=== PATIENT | male | born 1985 | race Caucasian/White ===

== ENCOUNTER 2020-07-12 18:19 | Emergency (ER) | payer BC, SELFPAY ==
[2020-07-12 18:43] VITALS: BP 140/88; PULSE 83; RESP 16; TEMP 36.7; O2SAT 97; BMI 27.8
--- NOTE | 2020-07-12 19:36 | W.ED.EXTPRO ---
Documented by User: NATALIA Patterson 07/13/20 01:36 HPI - Extremity Problem General: Chief complaint: Extremity Injury, Lower Stated complaint: lac on fingers Time Seen by Provider: 07/12/20 19:36 History of Present Illness: HPI Narrative: Patient is a 34-year-old male who comes to the ED with a laceration on her right hand. Patient says he was peeling potatoes and cut his first and third digits of right hand. First first digit has laceration on it and he says the third digit has a chunk of skin that was removed. He is having trouble controlling bleeding on third digit. patient's last tetanus was over 10 years ago. Associated symptoms: Deny chest pain, fever(s) or rash Review of Systems Const: Denies: fever(s), chills or fatigue Eyes: Denies: change in vision or eye discomfort ENMT: Denies: throat pain, odynophagia, nasal discharge or nasal congestion Card: Denies: chest pain, palpitations, edema, swelling of feet/ankles, dyspnea on exertion or orthopnea Resp: Denies: dyspnea, productive cough or non-productive cough GI: Denies: abdominal pain, nausea, vomiting, diarrhea, constipation or hematochezia : Denies: flank pain, difficulty urinating, dysuria or hematuria Musc: Denies: neck pain, back pain or extremity swelling Skin/Breast: Reports: new lesions (Right hand-first digit laceration. Third digit skin avulsion.); Denies: rash Neuro: Denies: headache(s), numbness in extremities or weakness in extremities Physical Exam Const: COMMON NORMALS: no acute distress, patient oriented x3 and alert HENMT: COMMON NORMALS: normocephalic HEAD & SCALP: normocephalic MOUTH: Normal oral and palatal mucosa present THROAT: posterior oropharynx normal and uvula midline Neck/C-Spine: COMMON NORMALS: supple GENERAL: Yes normal visual inspection Resp: COMMON NORMALS: normal respiratory effort, No retractions, No use of accessory muscles and clear to auscultation bilaterally AUSCULTATION: clear to auscultation bilaterally Cardio: COMMON NORMALS: regular rate, regular rhythm, S1 normal heart sound present, S2 normal heart sound present, No gallops present (Cardio), No clicks present (Cardio), No murmurs present (Cardio) and Peripheral pulses 2+ throughout RATE: regular rate RHYTHM: regular rhythm HEART SOUNDS: S1 normal heart sound present and S2 normal heart sound present PERIPHERAL PULSES: Peripheral pulses 2+ throughout GI: COMMON NORMALS: Normal to inspection, nondistended, normoactive bowel sounds present, Soft to palpation, non-tender and no masses PALPATION: Yes Soft to palpation : COMMON NORMALS: Yes no CVA tenderness BLADDER/KIDNEY EXAM: Yes no CVA tenderness Back/Pelvis: COMMON NORMALS: no CVA tenderness Extremity: COMMON NORMALS: full ROM NARRATIVE EXTREMITY EXAM: Right hand--first digit has skin flap that is not actively bleeding. Patient's third digit has a skin avulsion on dorsal side. There is active pulsatile bleeding present. GENERAL: Yes normal exam except as noted Neuro: COMMON NORMALS: patient oriented x3 and moves all extremities SENSORIUM/ORIENTATION: Yes alert Skin: NARRATIVE SKIN EXAM: Right hand--first digit has skin flap that is not actively bleeding. Patient's third digit has a skin avulsion on dorsal side. There is active pulsatile bleeding present. GENERAL SKIN EXAM: dry skin Procedures Laceration Laceration 1: Site: hand Side (If applicable): right Size (cm): 1 Description: flap and clean Depth: simple, single layer Local Anesthetic: lidocaine 2% Amount of anesthesia used (mL): 10 Pre-repair: irrigated extensively (Irrigated extensively with normal saline by nurse. Then cleaned with alcohol swab.) Skin layer closed with: nylon Size (cm): 4-0 Number of sutures: 2 Technique: simple, interrupted Course Reevaluation(s): Reevaluation #1: With a skin avulsion I applied lidocaine with epi soaked cotton balls and applied bandage to try to get the bleeding to slow and stop. After leaving bandage on for 40 minutes I then removed it and bleeding continued. Reevaluation #2: Brought Dr. Chance with me to evaluate patient's skin avulsion and bleeding. I then irrigated skin avulsion with normal saline and then injected some lidocaine with epi around skin avulsion to help with bleeding. Dr. Chance then placed finger tourniquet and then placed 1 Vicryl absorbable in the skin avulsion and it helped stop bleeding. We then placed petroleum gauze and wrapped finger. Vital Signs: Vital signs: Vital Signs Temperature 98.0 F 07/12/20 18:43 Pulse Rate 83 07/12/20 18:43 Respiratory Rate 16 07/12/20 18:43 Blood Pressure 140/88 07/12/20 18:43 Pulse Oximetry 97 07/12/20 18:43 MDM - Extremity (Nontraumatic) MDM Narrative: Medical decision making narrative: Patient is a 34-year-old male who comes to the ED with a laceration on fingers of right hand. Physical exam shows a skin flap laceration on first digit of right hand and third digit had a skin avulsion with active pulsatile bleeding. X-ray of right hand was performed and showed no acute fractures or findings. 2 sutures were placed on first digit of right hand. Skin avulsion was finally controlled with I then irrigated skin avulsion with normal saline and then injected some lidocaine with epi around skin avulsion to help with bleeding. Dr. Chance then placed finger tourniquet and then placed 1 Vicryl absorbable in the skin avulsion and it helped stop bleeding. We then placed petroleum gauze and wrapped finger. Patient was given dose of cephalexin and an updated tetanus shot while here in the ED. Patient was told on how to care for laceration and avulsion. He was sent home with a prescription for cephalexin as prophylactic treatment. Have sutures removed in 7 to 10 days. Return to ED precautions given. Patient understood and agreed with plan. Imaging Data^: Xray Ortho: Attestation: I personally reviewed and interpreted this imaging study as follows: My impression: Right hand x-ray-no acute fractures or findings. Discharge Plan Discharge Patient Disposition: Home Clinical Impression: Laceration, Avulsion, skin Condition: Stable Prescriptions: New cephalexin 500 mg capsule 500 mg PO TID 5 Days Qty: 15 RF: 0 Discharge Orders: Discharge Order (Routine); Ordered 07/12/20 Ordered By: Carroll Daniel Discharge Diet: Regular Discharge Activity: Increase activity as tolerated Patient Instructions: Laceration (ED), Skin Avulsion (ED) Activity Restrictions/Additional Instructions: Take full course of antibiotics as prescribed. Bandage on middle finger leave in place for the next 48 hours as well then clean, repack and bandage daily. Keep laceration site clean and dry for the next 48 hours. Then after that you can clean and re-bandage daily. Watch for signs of infection such as redness, warmth, increased tenderness and puslike drainage. If you see the signs of infection return to the ED, urgent care or PCP for reevaluation. call your PCP to schedule a follow-up appointment for reevaluation and suture removal in about 10 days. Continue taking all home meds. Follow discharge plans as discussed. You can return to the ED if symptoms worsen. Discharge Date/Time: 07/12/20 22:08 Coding Level of Care Code ED Fine Craft Artist for Chg Fwd Exam Comprehensive Documented by User: Celina Chance MD 07/13/20 21:49 HPI - Extremity Problem General: Chief complaint: Extremity Injury, Lower Stated complaint: lac on fingers Time Seen by Provider: 07/12/20 19:36 Course Vital Signs: Vital signs: Vital Signs Temperature 98.0 F 07/12/20 18:43 Pulse Rate 83 07/12/20 18:43 Respiratory Rate 16 07/12/20 18:43 Blood Pressure 140/88 07/12/20 18:43 Pulse Oximetry 97 07/12/20 18:43 Discharge Plan Discharge Patient Disposition: Home Clinical Impression: Laceration, Avulsion, skin Condition: Stable Prescriptions: New cephalexin 500 mg capsule 500 mg PO TID 5 Days Qty: 15 RF: 0 Discharge Orders: Discharge Order (Routine); Ordered 07/12/20 Ordered By: Carroll Daniel Discharge Diet: Regular Discharge Activity: Increase activity as tolerated Patient Instructions: Laceration (ED), Skin Avulsion (ED) Activity Restrictions/Additional Instructions: Take full course of antibiotics as prescribed. Bandage on middle finger leave in place for the next 48 hours as well then clean, repack and bandage daily. Keep laceration site clean and dry for the next 48 hours. Then after that you can clean and re-bandage daily. Watch for signs of infection such as redness, warmth, increased tenderness and puslike drainage. If you see the signs of infection return to the ED, urgent care or PCP for reevaluation. call your PCP to schedule a follow-up appointment for reevaluation and suture removal in about 10 days. Continue taking all home meds. Follow discharge plans as discussed. You can return to the ED if symptoms worsen. Discharge Date/Time: 07/12/20 22:08 Coding Level of Care Code ED Fine Craft Artist for Abel Chung Exam Comprehensive
--- NOTE | 2020-07-12 19:51 | XRR_ITS ---
PROCEDURE INFORMATION: Exam: XR Right Hand Exam date and time: 07/12/2020 8:06 PM Age: 34 years old Clinical indication: Injury or trauma; Other: Laceration; Right; Index finger and middle finger and ring finger; Injury date: 07/12/20; Additional info: Cut injury to digit 1 and 2. TECHNIQUE: Imaging protocol: XR Right hand. Views: 3 or more views. COMPARISON: No relevant prior studies available. FINDINGS: Bones/joints: Osseous structures of the hand are without an acute process. Distal radioulnar joint and radiocarpal joints grossly normal. Carpus without fracture. Metacarpals and phalangeal without fracture or dislocation. No erosive changes or periarticular calcifications. Bandage about the mid and distal phalanges of the 3rd ray. Soft tissues: See Bones/joints finding. XR/XR hand RT min 3V* [id number] IMPRESSION: Normal hand. No fracture. No foreign body.
[2020-07-12] MEDS: tetanus-diphtheria tox (adult) 0.5 mL SDV IM (20:06)
[2020-07-12] MEDS: cephALEXin 500 mg Capsule PO (21:06)
[2020-07-12] MEDS: lidocaine 2% INJ 20 mL INJECTION (21:06)
== END 2020-07-12 22:08 | disposition home or self-care (01) ==
PROVIDERS: Emergency Provider Physician Assistant
DX: S61.011A Laceration without foreign body of right thumb without damage to nail, initial encounter (principal); S61.212A Laceration without foreign body of right middle finger without damage to nail, initial encounter; W26.0XXA Contact with knife, initial encounter; Z23 Encounter for immunization
CPT/HCPCS: 12001; 12345; 73130; 90471; 90714; 99281; 99283

== ENCOUNTER 2022-05-13 14:07 | Emergency (ER) | payer BC, SELFPAY ==
[2022-05-13] VITALS (45 sets, daily range): BP systolic 132–160; BP diastolic 86–101; PULSE 69–97; RESP 10–25; TEMP 36.6; O2SAT 95–100; BMI 29.1
--- NOTE | 2022-05-13 14:29 | XRR_ITS ---
PROCEDURE INFORMATION: Exam: XR Chest Exam date and time: 05/13/2022 2:44 PM Age: 36 years old Clinical indication: Chest wall pain; Additional info: Chest pain TECHNIQUE: Imaging protocol: Radiologic exam of the chest. Views: 1 view. COMPARISON: No relevant prior studies available. FINDINGS: Lungs: Unremarkable. No consolidation. Pleural spaces: Unremarkable. No pleural effusion. No pneumothorax. Heart/Mediastinum: Unremarkable. No cardiomegaly. Bones/joints: Unremarkable. XR/XR chest 1V portable [id number] IMPRESSION: No acute findings.
--- NOTE | 2022-05-13 14:33 | ECG_ITS ---
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 Measurements Intervals [place] Rate: 86 P: 59 WV: 183 QRS: -25 QRSD: 111 T: 41 QT: 358 QTc: 430 Interpretive Statements SINUS RHYTHM WITH OCCASIONAL ECTOPIC PREMATURE COMPLEXES BORDERLINE LEFT AXIS DEVIATION [QRS AXIS < -20] INCOMPLETE RIGHT BUNDLE BRANCH BLOCK [90+ ms QRS DURATION, TERMINAL R IN V1/V2, 40+ ms S IN I/aVL/V4/V5/V6] No previous ECG available for comparison Electronically Signed On 05-15-2022 8:12:18 CDT by Shannon Almendarez M.D. [email or web address]
[2022-05-13 14:57] LABS: Basophils # 0.1 10^3/uL (0.0-0.1); Basophils % 0.8 %; Eosinophils # 0.2 10^3/uL (0.0-0.8); Eosinophils % 2.3 %; Hematocrit 47.1 % (42.0-52.0); Hemoglobin 15.6 g/dL (11.7-16.6); Lymphocytes # 1.3 10^3/uL (0.8-4.8); Lymphocytes % 12.2 %; Mean Corpuscular HGB Conc 33.1 g/dL (30.0-36.0); Mean Corpuscular Hemoglobin 28.6 pg (28.0-34.0); Mean Corpuscular Volume 86.4 fl (80-94); Mean Platelet Volume 11.6 fL (7.4-10.4); Monocytes # 0.5 10^3/uL (0.2-0.9); Monocytes % 4.5 %; Neutrophils # 8.31 10^3/uL (1.8-7.7); Neutrophils % 79.7 %; Nucleated Red Blood Cells % 0 %; Platelet Count 219 10^3/cmm (130-400); Red Blood Count 5.45 10^6/uL (4.1-5.3); Red Cell Distribution Width 12.6 % (12.1-15.1); White Blood Count 10.4 10^3/uL (4.0-10.0)
--- NOTE | 2022-05-13 14:57 | ED_ITS ---
Documented by User: Carlton Vizcarra DO 05/15/22 07:16 HPI - Chest Pain General: Chief Complaint: Chest Pain Stated Complaint: chest pain Time Seen by Provider: 05/13/22 14:43 Source: patient Mode of arrival: ambulatory Limitations: no limitations History of Present Illness: 36-year-old male presents emergency room with complaint of chest discomfort. He was sitting at home relaxing had chest discomfort lasted about 30 minutes. When he describes it to me he is more fo cused on some pain in the right axilla radiating down the arm he noticed that he thought his third finger turned blue. During the same timeframe he had some mild chest discomfort although this resolved within 30 minutes he has not had any episodes like this before previously. Patient is not diabetic he does not smoke he drinks alcohol occasionally he has no family history or personal history of coronary artery disease all of his symptoms are completely resolved at this point. He is not had any recent illness no fever sweats chills or productive cough. MD complaint: chest pain Onset (ago): minute(s) Timing of current episode: episodic Prior episodes: No Onset: during rest Pain location: left chest Pain radiation: right arm Severity: mild Quality: aching and heaviness Relieving factors: nothing Exacerbating factors: nothing Associated symptoms: Reports dyspnea; Deny abdominal pain, diaphoresis, fever(s), leg edema, nausea, palpitations, sense of impending doom, syncope or vomiting Treatment prior to arrival: none Review of Systems Const: Denies: fever(s), chills, fatigue, malaise or diaphoresis ENMT: Denies: throat pain, ear or mastoid pain, nasal discharge or nasal congestion Card: Reports: chest pain; Denies: palpitations, irregular heart rhythm, edema or syncope Resp: Reports: dyspnea; Denies: productive cough, non-productive cough or wheezing GI: Denies: abdominal pain, nausea or vomiting : Denies: flank pain, difficulty urinating, dysuria, urinary frequency or urinary urgency Musc: Denies: neck pain or back pain Skin/Breast: Denies: rash or pruritus [facility] ED PFSH: Medical History No significant past medical history Surgical History No significant past surgical history Family History Denies family history of CAD (coronary artery disease) Family history of premature coronary artery disease Social History Smoking and tobacco status: never smoked Alcohol intake: current Alcohol intake frequency: few times a week Physical Exam Const: GENERAL APPEARANCE: cooperative and comfortable ORIENTATION/CONSCIOUSNESS: Yes awake, Yes oriented to person, Yes oriented to place and Yes oriented to time HENMT: COMMON NORMALS: normocephalic, atraumatic and hearing grossly normal bilaterally HEAD & SCALP: normocephalic and atraumatic Eye: COMMON NORMALS: Equal, round and reactive pupils present, EOMs intact bilaterally, conjunctivae normal and no scleral icterus CONJUNCTIVA: Yes conjunctivae normal PUPIL: Yes Equal, round and reactive pupils present Neck/C-Spine: COMMON NORMALS: full ROM, no lymphadenopathy, supple and no JVD Lymph: LYMPHATIC: no lymphadenopathy noted and no lymphedema noted Resp: COMMON NORMALS: normal respiratory effort, No retractions, No use of accessory muscles and clear to auscultation bilaterally AUSCULTATION: clear to auscultation bilaterally Cardio: COMMON NORMALS: no JVD, regular rate, regular rhythm and No murmurs present (Cardio) RATE: regular rate RHYTHM: regular rhythm GI: COMMON NORMALS: Soft to palpation and No hepatosplenomegaly present AUSCULTATION: Yes normoactive bowel sounds PALPATION: Yes Soft to palpation, No Tenderness to palpation present (GI), No Guarding due to palpation present (GI) and Yes No hepatosplenomegaly present Extremity: COMMON NORMALS: normal to inspection, capillary refill normal, no clubbing, cyanosis or edema, no calf tenderness and no pedal edema Neuro: SENSORIUM/ORIENTATION: Yes oriented to person, Yes oriented to place and Yes oriented to time Skin: COMMON NORMALS: no rashes or lesions noted GENERAL SKIN EXAM: no rashes or lesions noted Course Vital Signs: Vital signs: Vital Signs Temperature 97.9 F 05/13/22 14:22 Pulse Rate 69 05/13/22 19:33 Respiratory Rate 18 05/13/22 19:33 Blood Pressure 142/101 05/13/22 19:33 Pulse Oximetry 97 05/13/22 19:33 Oxygen Delivery Me thod 05/13/22 14:22 MDM - Chest Pain Medical Decision Making Care signed out to Dr. Connors at change of shift. See final notes for diagnosis and disposition. 36-year-old male checked out to me by Dr. Vizcarra. This gentleman has resolved pain essentially. His CBC is essentially normal. BMP is normal. His troponin is 6, at 0 and 2 hours. His EKG shows a sinus rhythm with left axis deviation. He has an incomplete right bundle branch block which is not atypical for young males. There were no acute ST changes. His rate is 75. Chest x-ray is negative. He'll be allowed home Lab Data : 05/13/22 14:48 05/13/22 14:48 Radiology Impressions Chest X-Ray 05/13/22 14:29 IMPRESSION: No acute findings. Laboratory Results WBC 10.4 10^3/uL (4.0-10.0) H 05/13/22 14:48 RBC 5.45 10^6/uL (4.1-5.3) H 05/13/22 14:48 Hgb 15.6 g/dL (11.7-16.6) 05/13/22 14:48 Hct 47.1 % (42.0-52.0) 05/13/22 14:48 MCV 86.4 fl (80-94) 05/13/22 14:48 MCH 28.6 pg (28.0-34.0) 05/13/22 14:48 MCHC 33.1 g/dL (30.0-36.0) 05/13/22 14:48 RDW 12.6 % (12.1-15.1) 05/13/22 14:48 Plt Count 219 10^3/cmm (130-400) 05/13/22 14:48 MPV 11.6 fL (7.4-10.4) H 05/13/22 14:48 Neut % (Auto) 79.7 % 05/13/22 14:48 Lymph % (Auto) 12.2 % 05/13/22 14:48 [place] % (Auto) 4.5 % 05/13/22 14:48 Eos % (Auto) 2.3 % 05/13/22 14:48 Baso % (Auto) 0.8 % 05/13/22 14:48 Neut # (Auto) 8.31 10^3/uL (1.8-7.7) H 05/13/22 14:48 Lymph # (Auto) 1.3 10^3/uL (0.8-4.8) 05/13/22 14:48 [place] # (Auto) 0.5 10^3/uL (0.2-0.9) 05/13/22 14:48 Eos # (Auto) 0.2 10^3/uL (0.0-0.8) 05/13/22 14:48 Baso # (Auto) 0.1 10^3/uL (0.0-0.1) 05/13/22 14:48 Nucleated RBC % (auto) 0 % 05/13/22 14:48 Nucleated RBCs # 0.0 /100WBC 05/13/22 14:48 Sodium 137 mmol/L (136-145) 05/13/22 14:48 Potassium 3.7 mmol/L (3.5-5.1) 05/13/22 14:48 Chloride 100 mmol/L (98-107) 05/13/22 14:48 Carbon Dioxide 25 mmol/L (22-29) 05/13/22 14:48 Anion Gap 15.7 (5-19) 05/13/22 14:48 BUN 10 mg/dL (6-20) 05/13/22 14:48 Creatinine 0.9 mg/dL (0.7-1.2) 05/13/22 14:48 GFR Calculation 96.6 mL/min (90-130) 05/13/22 14:48 Glucose 143 mg/dL (65-115) H 05/13/22 14:48 Calculated Osmolality 286 mOsm/kg (285-295) 05/13/22 14:48 Calcium 9.4 mg/dL (8.5-10.5) 05/13/22 14:48 Total Bilirubin 0.4 mg/dL (0.15-1.2) 05/13/22 14:48 AST 15 U/L (0-40) 05/13/22 14:48 ALT 23 U/L (0-41) 05/13/22 14:48 Alkaline Phosphatase 67 U/L (40-130) 05/13/22 14:48 Troponin T Baseline 6 ng/L (0-15) 05/13/22 14:48 Troponin T 120 Minute 6.00 ng/L (0-15) 05/13/22 17:30 Delta Troponin T 0 ABS# (0-10) 05/13/22 17:30 Total Protein 7.8 g/dL (6.6-8.7) 05/13/22 14:48 Albumin 4.9 g/dL (3.5-5.2) 05/13/22 14:48 Globulin 2.9 g/dL (1.3-4.6) 05/13/22 14:48 Urine Color Yellow (Yellow) 05/13/22 15:24 Urine Appearance Clear (CLEAR) 05/13/22 15:24 Urine pH 6.5 (5-7) 05/13/22 15:24 Ur Specific Advance 1.030 (1.005-1.030) 05/13/22 15:24 Urine Protein Neg (Negative) 05/13/22 15:24 Urine Glucose (UA) Norm (Normal) 05/13/22 15:24 Urine Ketones Negative (Negative) 05/13/22 15:24 Urine Blood 2+ (Negative) H 05/13/22 15:24 Urine Nitrate Negative (Negative) 05/13/22 15:24 Urine Bilirubin Neg (Negative) 05/13/22 15:24 Urine Urobilinogen Norm mg/dL (Negative) 05/13/22 15:24 Ur Leukocyte Esterase Trace (Negative) H 05/13/22 15:24 Urine RBC None /hpf (0-2) 05/13/22 15:24 Urine WBC Rare /hpf (0-5) 05/13/22 15:24 Ur Squamous Epith Cells None /hpf (0-5) 05/13/22 15:24 Amorphous Sediment Not Reportable 05/13/22 15:24 Urine Bacteria None /hpf (NONE) 05/13/22 15:24 Urine Mucus Trace /hpf 05/13/22 15:24 Discharge Plan Discharge Patient Disposition: Home Clinical Impression: Chest pain Qualifiers: Chest pain type: unspecified Qualified Code(s): R07.9 - Chest pain, unspecified Discharge Orders: Discharge ED (Routine); Ordered 05/13/22 Ordered By: John Connors Discharge Diet: Advance as tolerated Discharge Activity: Increase activity as tolerated Patient Instructions: Chest Pain (ED) Activity Restrictions/Additional Instructions: Laboratory testing, EKG, and imaging did not reveal a cause of your discomfort this evening. Return to the ER for return of discomfort, shortness of breath, fever, any other concerning symptoms. Coding Level of Care Code ED Senior It Auditor for Chg Fwd Exam Comprehensive Documented by User: John Connors DO 05/14/22 01:29 HPI - Chest Pain General: Chief Complaint: Chest Pain Stated Complaint: chest pain Time Seen by Provider: 05/13/22 14:43 [facility] ED PFSH: Medical History No significant past medical history Surgical History No significant past surgical history Family History Denies family history of CAD (coronary artery disease) Family history of premature coronary artery disease Social History Smoking and tobacco status: never smoked Alcohol intake: current Alcohol intake frequency: few times a week Course Vital Signs: Vital signs: Vital Signs Temperature 97.9 F 05/13/22 14:22 Pulse Rate 69 05/13/22 19:33 Respiratory Rate 18 05/13/22 19:33 Blood Pressure 142/101 05/13/22 19:33 Pulse Oximetry 97 05/13/22 19:33 Oxygen Delivery Me thod 05/13/22 14:22 MDM - Chest Pain Medical Decision Making 36-year-old male checked out to me by Dr. Vizcarra. This gentleman has resolved pain essentially. His CBC is essentially normal. BMP is normal. His troponin is 6, at 0 and 2 hours. His EKG shows a sinus rhythm with left axis deviation. He has an incomplete right bundle branch block which is not atypical for young males. There were no acute ST changes. His rate is 75. Chest x-ray is negative. He'll be allowed home Lab Data : 05/13/22 14:48 05/13/22 14:48 Radiology Impressions Chest X-Ray 05/13/22 14:29 IMPRESSION: No acute findings. Laboratory Results WBC 10.4 10^3/uL (4.0-10.0) H 05/13/22 14:48 RBC 5.45 10^6/uL (4.1-5.3) H 05/13/22 14:48 Hgb 15.6 g/dL (11.7-16.6) 05/13/22 14:48 Hct 47.1 % (42.0-52.0) 05/13/22 14:48 MCV 86.4 fl (80-94) 05/13/22 14:48 MCH 28.6 pg (28.0-34.0) 05/13/22 14:48 MCHC 33.1 g/dL (30.0-36.0) 05/13/22 14:48 RDW 12.6 % (12.1-15.1) 05/13/22 14:48 Plt Count 219 10^3/cmm (130-400) 05/13/22 14:48 MPV 11.6 fL (7.4-10.4) H 05/13/22 14:48 Neut % (Auto) 79.7 % 05/13/22 14:48 Lymph % (Auto) 12.2 % 05/13/22 14:48 [place] % (Auto) 4.5 % 05/13/22 14:48 Eos % (Auto) 2.3 % 05/13/22 14:48 Baso % (Auto) 0.8 % 05/13/22 14:48 Neut # (Auto) 8.31 10^3/uL (1.8-7.7) H 05/13/22 14:48 Lymph # (Auto) 1.3 10^3/uL (0.8-4.8) 05/13/22 14:48 [place] # (Auto) 0.5 10^3/uL (0.2-0.9) 05/13/22 14:48 Eos # (Auto) 0.2 10^3/uL (0.0-0.8) 05/13/22 14:48 Baso # (Auto) 0.1 10^3/uL (0.0-0.1) 05/13/22 14:48 Nucleated RBC % (auto) 0 % 05/13/22 14:48 Nucleated RBCs # 0.0 /100WBC 05/13/22 14:48 Sodium 137 mmol/L (136-145) 05/13/22 14:48 Potassium 3.7 mmol/L (3.5-5.1) 05/13/22 14:48 Chloride 100 mmol/L (98-107) 05/13/22 14:48 Carbon Dioxide 25 mmol/L (22-29) 05/13/22 14:48 Anion Gap 15.7 (5-19) 05/13/22 14:48 BUN 10 mg/dL (6-20) 05/13/22 14:48 Creatinine 0.9 mg/dL (0.7-1.2) 05/13/22 14:48 GFR Calculation 96.6 mL/min (90-130) 05/13/22 14:48 Glucose 143 mg/dL (65-115) H 05/13/22 14:48 Calculated Osmolality 286 mOsm/kg (285-295) 05/13/22 14:48 Calcium 9.4 mg/dL (8.5-10.5) 05/13/22 14:48 Total Bilirubin 0.4 mg/dL (0.15-1.2) 05/13/22 14:48 AST 15 U/L (0-40) 05/13/22 14:48 ALT 23 U/L (0-41) 05/13/22 14:48 Alkaline Phosphatase 67 U/L (40-130) 05/13/22 14:48 Troponin T Baseline 6 ng/L (0-15) 05/13/22 14:48 Troponin T 120 Minute 6.00 ng/L (0-15) 05/13/22 17:30 Delta Troponin T 0 ABS# (0-10) 05/13/22 17:30 Total Protein 7.8 g/dL (6.6-8.7) 05/13/22 14:48 Albumin 4.9 g/dL (3.5-5.2) 05/13/22 14:48 Globulin 2.9 g/dL (1.3-4.6) 05/13/22 14:48 Urine Color Yellow (Yellow) 05/13/22 15:24 Urine Appearance Clear (CLEAR) 05/13/22 15:24 Urine pH 6.5 (5-7) 05/13/22 15:24 Ur Specific Advance 1.030 (1.005-1.030) 05/13/22 15:24 Urine Protein Neg (Negative) 05/13/22 15:24 Urine Glucose (UA) Norm (Normal) 05/13/22 15:24 Urine Ketones Negative (Negative) 05/13/22 15:24 Urine Blood 2+ (Negative) H 05/13/22 15:24 Urine Nitrate Negative (Negative) 05/13/22 15:24 Urine Bilirubin Neg (Negative) 05/13/22 15:24 Urine Urobilinogen Norm mg/dL (Negative) 05/13/22 15:24 Ur Leukocyte Esterase Trace (Negative) H 05/13/22 15:24 Urine RBC None /hpf (0-2) 05/13/22 15:24 Urine WBC Rare /hpf (0-5) 05/13/22 15:24 Ur Squamous Epith Cells None /hpf (0-5) 05/13/22 15:24 Amorphous Sediment Not Reportable 05/13/22 15:24 Urine Bacteria None /hpf (NONE) 05/13/22 15:24 Urine Mucus Trace /hpf 05/13/22 15:24 Discharge Plan Discharge Patient Disposition: Home Clinical Impression: Chest pain Qualifiers: Chest pain type: unspecified Qualified Code(s): R07.9 - Chest pain, unspecified Discharge Orders: Discharge ED (Routine); Ordered 05/13/22 Ordered By: John Connors Discharge Diet: Advance as tolerated Discharge Activity: Increase activity as tolerated Patient Instructions: Chest Pain (ED) Activity Restrictions/Additional Instructions: Laboratory testing, EKG, and imaging did not reveal a cause of your discomfort this evening. Return to the ER for return of discomfort, shortness of breath, fever, any other concerning symptoms. Coding Level of Care Code ED Senior It Auditor for [place] Fwd Exam Comprehensive
[2022-05-13 15:25] LABS: Alanine Aminotransferase 23 U/L (0-41); Albumin Level 4.9 g/dL (3.5-5.2); Alkaline Phosphatase 67 U/L (40-130); Anion Gap 15.7 (5-19); Aspartate Amino Transferase 15 U/L (0-40); Blood Urea Nitrogen 10 mg/dL (6-20); Calcium 9.4 mg/dL (8.5-10.5); Carbon Dioxide 25 mmol/L (22-29); Chloride 100 mmol/L (98-107); Globulin 2.9 g/dL (1.3-4.6); Glomerular Filtration Rate 96.6 mL/min (90-130); Glucose 143 mg/dL (65-115); Osmolality Calculated 286 mOsm/kg (285-295); Potassium 3.7 mmol/L (3.5-5.1); Sodium 137 mmol/L (136-145); Total Bilirubin 0.4 mg/dL (0.15-1.2); Total Protein 7.8 g/dL (6.6-8.7)
[2022-05-13 15:26] LABS: Troponin(5th) Baseline 6 ng/L (0-15)
[2022-05-13 16:06] LABS: Add Urine Microscopic? YES; Bilirubin Urine Neg (Negative); Blood Urine 2+ (Negative); Glucose Urine UA Norm (Normal); Ketones Urine Negative (Negative); Leukocyte Esterase Urine Trace (Negative); Nitrate Urine Negative (Negative); Protein Urine Neg (Negative); Urine Appearance Clear (CLEAR); Urine Color Yellow (Yellow); Urobilinogen Urine Norm (Negative); pH Urine 6.5 (5-7)
[2022-05-13 16:10] LABS: Mucus Urine TRACE /hpf; WBC Urine RARE /hpf (0-5)
[2022-05-13 16:11] LABS: Add Urine Culture? No
--- NOTE | 2022-05-13 16:29 | ECG_ITS ---
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 Measurements Intervals [place] Rate: 77 P: 34 CA: 162 QRS: -34 QRSD: 110 T: 43 QT: 376 QTc: 427 Interpretive Statements SINUS RHYTHM LEFT AXIS DEVIATION [QRS AXIS < -30] INCOMPLETE RIGHT BUNDLE BRANCH BLOCK [90+ ms QRS DURATION, TERMINAL R IN V1/V2, 40+ ms S IN I/aVL/V4/V5/V6] Compared to ECG 05/13/2022 14:33:58 No significant changes Electronically Signed On 05-15-2022 8:11:44 CDT by Shannon Almendarez M.D. [email or web address]
[2022-05-13 23:18] LABS: Troponin 5 2HR Delta 0 ABS# (0-10)
== END 2022-05-13 19:35 | disposition home or self-care (01) ==
PROVIDERS: Family Medicine; Emergency Provider Emergency Medicine
DX: R07.9 Chest pain, unspecified (principal)
CPT/HCPCS: 36415; 71045; 80053; 81001; 84484; 85025; 93005; 99285